=== PATIENT | female | born 1990 | race Caucasian/White ===

== ENCOUNTER 2020-08-03 22:46 | Emergency (ER) | payer MEDICAID, SELFPAY ==
--- NOTE | ~2020-08-03 | CT_ITS ---
EXAMINATION: CT ABDOMEN AND PELVIS WITH CONTRAST CLINICAL INFORMATION: Right flank/right lower quadrant pain COMPARISON: 10/31/2017 TECHNIQUE: Multidetector volumetric images were obtained from the superior aspect of the liver through the pubic symphysis following administration 85 mL of Omnipaque 350 intravenous contrast. Delayed acquisition performed. Sagittal and coronal reformatted images were obtained on the technologist's workstation. Oral contrast: No This CT examination was performed using dose optimization techniques as appropriate, variously including the following: *Automated exposure control *Adjustment of mA and/or kV according to patient size (this includes techniques or standardized protocols for targeted exams where dose is matched to indication/reason for exam; i.e. extremities or head) *Use of iterative reconstruction technique DLP: 728 mGy-cm FINDINGS: LUNG BASES: The visualized lung bases are unremarkable. LIVER, GALLBLADDER, AND BILIARY TREE: The liver is normal in size, shape, and attenuation. No focal hepatic lesion or biliary ductal dilatation is present. The gallbladder is unremarkable with no evidence of radiopaque gallstones, gallbladder wall thickening, or obvious pericholecystic inflammatory changes. PANCREAS: Unremarkable. SPLEEN: Unremarkable. ADRENAL GLANDS: Unremarkable. KIDNEYS AND URETERS: The kidneys are normal in size, shape, and attenuation. There is mild right hydroureteronephrosis. There is a 0.2 cm calculus in the distal right ureter approximately 1 cm proximal to the ureterovesicular junction. Normal left excretion. Delayed right excretion. Small cortical renal cysts. BLADDER: Unremarkable. GASTROINTESTINAL TRACT: The stomach is unremarkable. Normal caliber small bowel. There is no obstruction. No colonic wall thickening or acute inflammatory change. No free air. Small amount of pelvic free fluid. ABDOMINAL WALL: No significant hernia is appreciated. LYMPH NODES: Normal. VASCULAR: Unremarkable. PELVIC VISCERA: Anteverted uterus. Dominant left ovarian follicle noted which measures 2.2 x 1.3 cm. OSSEOUS STRUCTURES: No acute or suspicious osseous abnormality. CT/CT abdomen pelvis w con IMPRESSION: Mild right hydroureteronephrosis with a 0.2 cm distal right ureteral calculus.
[2020-08-03 22:48] VITALS: BP 126/75; PULSE 123; RESP 20; TEMP 36.7; O2SAT 99; BMI 20.9
--- NOTE | 2020-08-03 23:08 | ED_ITS ---
HPI - Abdominal Pain General Chief Complaint: Abdominal Pain Stated Complaint: Flank pain Time Seen by Provider: 08/03/20 23:07 Source: patient Mode of arrival: ambulatory History of Present Illness HPI narrative: This is a 29-year-old female with history of renal stones who presents with acute onset of right lower quadrant pain and involvement with the lower back but denies any urinary pain/burning/fevers/chills but has been nauseous. This all started at 8:00 p.m. and patient states has progressively worsened. She endorses that the pain worsens with laying down. Related Data Previous Rx's Medication Instructions Recorded ciprofloxacin HCl 500 mg PO Q12H 5 Days #10 tab 08/04/20 ketorolac 10 mg PO TID PRN 5 Days #15 tab 08/04/20 tamsulosin [Flomax] 0.4 mg PO BEDTIME 4 Days #4 cap 08/04/20 Allergies Allergy/AdvReac Type Severity Reaction Status Date / Time No Known Allergies Allergy Verified 08/03/20 22:48 Review of Systems Review of Systems Pertinent positives and negatives as stated in HPI 10 point review systems otherwise negative. Physical Exam Vital Signs: Vital Signs: Last Vital Signs Temp 98.0 F 08/03/20 22:48 Pulse 123 H 08/03/20 22:48 Resp 20 08/03/20 22:48 BP 126/75 08/03/20 22:48 Pulse Ox 99 08/03/20 22:48 Body Mass Index 20.9 VITAL SIGNS: Reviewed. GENERAL: Well developed, well nourished, in no acute distress. HEAD: Normocephalic/atraumatic NOSE: Nares patent bilateral OROPHARYNX: no oral lesions noted, posterior pharynx clear NECK: Supple, no adenopathy LUNGS: Normal breath sounds. No adventitious sounds or accessory muscle use. SpO2<99> CARDIOVASCULAR: Regular rate and rhythm without noted murmurs ABDOMEN: Soft, minimal tenderness in the right lower quadrant on palpation, no CVA tenderness, non-distended with bowel sounds. NEUROLOGIC: Alert and oriented x 4. Course Course Course Narrative: This is a 29-year-old female history and clinical presentation most consistent with renal colic, but will rule out UTI/ectopic . Review of all investigations is significant for renal colic. On re-evaluation patient has improved in likely passed her stone she is now tolerating oral intake and pain is well controlled. She will be discharged on Flomax was treated with initial dose of antibiotics and will be discharged with remaining c ourse as well as being instructed to follow-up with her primary care provider for possible referral to Urology. MDM - Abdominal Pain Lab Data Result diagrams: 08/03/20 23:38 08/03/20 23:38 Labs: Lab Results 08/03/20 08/03/20 08/03/20 Range/Units 22:58 22:58 23:38 WBC 8.0 (4.8-10.8) X10*3/uL RBC 4.85 (4.20-5.50) X10*6/uL Hgb 14.1 (12.0-16.0) g/dl Hct 42.4 (37-47) % MCV 87.4 (80-98) fL MCH 29.1 (27.0-33.0) pg MCHC 33.3 (31.0-35.0) g/dl RDW 12.6 (11.0-16.0) % Plt Count 223 (160-400) X10*3/uL MPV 11.1 (9.4-12.3) fL Immature Gran % (Auto) 0.5 H (0.0-0.4) % Neut % (Auto) 80.0 H (45-73) % Lymph % (Auto) 13.8 L (20-40) % [place] % (Auto) 4.9 (2-11) % Eos % (Auto) 0.4 (0-4) % Baso % (Auto) 0.4 (0-2) % Lymph # (Auto) 1.1 L (1.2-4.9) X10*3/uL [place] # (Auto) 0.4 (0.1-1.2) X10*3/uL Eos # (Auto) 0.0 (0.0-0.4) X10*3/uL Baso # (Auto) 0.0 (0.0-0.2) X10*3/uL Abs Immat Gran (auto) 0.04 H (0.00-0.03) X10*3/uL Absolute Neuts (auto) 6.4 (2.0-8.3) X10*3/uL Absolute Nucleated RBC 0.000 (0.0-0.012) X10*3/uL Nucleated RBC % (auto) 0.0 (0.0-0.2) /100WBC Sodium (135-145) mmol/L Potassium (3.3-5.1) mmol/L Chloride (96-108) mmol/L Carbon Dioxide (22-29) mmol/L Anion Gap (12-20) BUN (9-16) mg/dL Creatinine (0.5-1.4) mg/dL Estim Creat Clear Calc Estimated GFR Random Glucose (60-115) mg/dL Lactic Acid (0.5-2.0) mmol/L Lactic Acid Fup @ 2Hr (0.5-2.0) mmol/L Calcium (8.4-10.2) mg/dL Total Bilirubin (0.0-1.0) mg/dL AST (5-31) U/L ALT (0-31) U/L Alkaline Phosphatase (39-117) U/L Total Protein (6.5-8.0) g/dL Albumin (3.5-5.0) g/dL Urine Color BROWN Urine Appearance CLOUDY Urine pH 5.0 (5.0-8.0) Ur Specific [place] >= 1.030 H (1.005-1.025) Urine Protein 1+ H (NEG-TRACE) MG/DL Urine Glucose (UA) NEG (NEG) MG/DL Urine Ketones 5 (NEG) MG/DL Urine Blood 3+ H (NEG) Urine Nitrite POS H (NEG) Ur Leukocyte Esterase NEG (NEG) Urine RBC TNTC H (0) /HPF Urine WBC 0-2 (0-4) /HPF Ur Squamous Epith Cells TRACE /LPF Urine Bacteria TRACE /LPF Urine Mucus 1+ /LPF Urine Test NEGATIVE (NEGATIVE) 08/03/20 08/03/20 08/04/20 Range/Units 23:38 23:59 02:19 WBC (4.8-10.8) X10*3/uL RBC (4.20-5.50) X10*6/uL Hgb (12.0-16.0) g/dl Hct (37-47) % MCV (80-98) fL MCH (27.0-33.0) pg MCHC (31.0-35.0) g/dl RDW (11.0-16.0) % Plt Count (160-400) X10*3/uL MPV (9.4-12.3) fL Immature Gran % (Auto) (0.0-0.4) % Neut % (Auto) (45-73) % Lymph % (Auto) (20-40) % [place] % (Auto) (2-11) % Eos % (Auto) (0-4) % Baso % (Auto) (0-2) % Lymph # (Auto) (1.2-4.9) X10*3/uL [place] # (Auto) (0.1-1.2) X10*3/uL Eos # (Auto) (0.0-0.4) X10*3/uL Baso # (Auto) (0.0-0.2) X10*3/uL Abs Immat Gran (auto) (0.00-0.03) X10*3/uL Absolute Neuts (auto) (2.0-8.3) X10*3/uL Absolute Nucleated RBC (0.0-0.012) X10*3/uL Nucleated RBC % (auto) (0.0-0.2) /100WBC Sodium 139 (135-145) mmol/L Potassium 3.8 (3.3-5.1) mmol/L Chloride 105 (96-108) mmol/L Carbon Dioxide 21 L (22-29) mmol/L Anion Gap 17 (12-20) BUN 10 (9-16) mg/dL Creatinine 0.73 (0.5-1.4) mg/dL Estim Creat Clear Calc 80.9 Estimated GFR > 60 Random Glucose 125 H (60-115) mg/dL Lactic Acid 2.2 H* (0.5-2.0) mmol/L Lactic Acid Fup @ 2Hr 1.9 (0.5-2.0) mmol/L Calcium 9.1 (8.4-10.2) mg/dL Total Bilirubin 1.2 H (0.0-1.0) mg/dL AST 18 (5-31) U/L ALT 23 (0-31) U/L Alkaline Phosphatase 56 (39-117) U/L Total Protein 7.6 (6.5-8.0) g/dL Albumin 4.7 (3.5-5.0) g/dL Urine Color Urine Appearance Urine pH (5.0-8.0) Ur Specific [place] (1.005-1.025) Urine Protein (NEG-TRACE) MG/DL Urine Glucose (UA) (NEG) MG/DL Urine Ketones (NEG) MG/DL Urine Blood (NEG) Urine Nitrite (NEG) Ur Leukocyte Esterase (NEG) Urine RBC (0) /HPF Urine WBC (0-4) /HPF Ur Squamous Epith Cells /LPF Urine Bacteria /LPF Urine Mucus /LPF Urine Test (NEGATIVE) Discharge Plan Discharge Clinical Impression: Ureterolithiasis UTI (urinary tract infection) Qualifiers: Urinary tract infection type: site unspecified Hematuria presence: with hematuria Qualified Code(s): N39.0 - Urinary tract infection, site not specified Patient Disposition: Home, Self-Care Instructions: Urinary Tract Infection in Women (ED), Ureteral Stones (ED) Additional Instructions: 1. Increase fluid hydration especially with water. 2. Please avoid caffeinated/carbonated beverages as this increases likelihood of stone formation. 3. Please follow-up with your primary care provider in the next 1-2 days. 4. Tylenol 1000 mg, orally, every 6 hours as needed for pain control. Do not exceed 4000 mg within 24 hours. Do not hesitate to return to the emergency department if you have any acute worsening of her symptoms. Prescriptions: New ketorolac 10 mg tablet 10 mg PO TID PRN (Reason: pain) 5 Days Qty: 15 RF: 0 tamsulosin [Flomax] 0.4 mg capsule 0.4 mg PO BEDTIME 4 Days Qty: 4 RF: 0 ciprofloxacin HCl 500 mg tablet 500 mg PO Q12H 5 Days Qty: 10 RF: 0 Referrals: Pepper Song MD [Primary Care Provider] - 2 days (Re-evaluation and outpatient management after being diagnosed with renal colic. Patient also had UTI and was started on antibiotics.) [facility] Past Medical History Source: nursing notes reviewed Medical History Kidney stones Social History Social History Smoked in Last 30 Days: No Advance Directives: No Advance Directives Information Provided: No
[2020-08-03 23:16] LABS: Glucose Urine UA NEG (NEG); Leukocyte Esterase Urine NEG (NEG); Nitrite Urine POS (NEG); Specific Gravity - Urine >= 1.030 (1.005-1.025); UACC Culture Trigger YES; Urine Blood 3+ (NEG); Urine Ketones 5 MG/DL (NEG); Urine Protein 1+ MG/DL (NEG-TRACE)
[2020-08-03 23:19] LABS: Appearance Urine CLOUDY; Color Urine BROWN
[2020-08-03 23:33] LABS: UPreg QC Valid YES; Urine Pregnancy NEGATIVE (NEGATIVE)
[2020-08-03 23:42] LABS: MANUAL DIFF FLAG NO
[2020-08-03] MEDS: 0.9 % Sodium Chloride 1,000 ML 999 ML IV (23:44)
[2020-08-03] MEDS: Acetaminophen 325 MG TABLET 975 MG PO (23:44)
[2020-08-03] MEDS: ondansetron HCL 4 MG/2 ML VIAL IVPUSH (23:45)
[2020-08-03] MEDS: Ketorolac Tromethamine 15 MG/ML VIAL IVPUSH (23:45)
[2020-08-03 23:47] LABS: Basophils Percent Auto 0.4 % (0-2); Eosinophils Percent Auto 0.4 % (0-4); Hematocrit 42.4 % (37-47); Hemoglobin 14.1 g/dl (12.0-16.0); Imm Gran Abs Auto 0.04 X10*3/uL (0.00-0.03); Imm Gran Pct Auto 0.5 % (0.0-0.4); Lymphocytes Absolute Auto 1.1 X10*3/uL (1.2-4.9); Lymphocytes Percent Auto 13.8 % (20-40); Mean Corpuscular HGB Conc 33.3 g/dl (31.0-35.0); Mean Corpuscular Hemoglobin 29.1 pg (27.0-33.0); Mean Corpuscular Volume 87.4 fL (80-98); Mean Platelet Volume 11.1 fL (9.4-12.3); Monocytes Absolute Auto 0.4 X10*3/uL (0.1-1.2); Monocytes Percent Auto 4.9 % (2-11); Neutrophils Absolute Auto 6.4 X10*3/uL (2.0-8.3); Platelet Count 223 X10*3/uL (160-400); Red Blood Count 4.85 X10*6/uL (4.20-5.50); Red Cell Distribution Width 12.6 % (11.0-16.0)
[2020-08-03 23:49] LABS: Bacteria Urine TRACE /LPF; Mucus Urine 1+ /LPF; RBC Urine TNTC /HPF (0); Squamous Epithelial Cell Urine TRACE /LPF; UACC CULT YES; WBC Urine 0-2 /HPF (0-4)
[2020-08-04 00:18] LABS: Alanine Aminotransferase 23 U/L (0-31); Albumin Level 4.7 g/dL (3.5-5.0); Alkaline Phosphatase 56 U/L (39-117); Anion Gap 17 (12-20); Aspartate Amino Transferase 18 U/L (5-31); Bilirubin Total 1.2 mg/dL (0.0-1.0); Blood Urea Nitrogen 10 mg/dL (9-16); Calcium 9.1 mg/dL (8.4-10.2); Carbon Dioxide 21 mmol/L (22-29); Chloride 105 mmol/L (96-108); Creatinine Clr Calc Pharmacy 80.9; Estimated Glomerular Filt Rate > 60; Glucose Random 125 mg/dL (60-115); Potassium 3.8 mmol/L (3.3-5.1); Sodium 139 mmol/L (135-145); Total Protein 7.6 g/dL (6.5-8.0)
[2020-08-04 00:28] LABS: Lactic Acid 2.2 mmol/L (0.5-2.0)
[2020-08-04] MEDS: iohexoL 350 MG/ML 100 ML INFUS..BTL 85 ML IV (00:42)
[2020-08-04] MEDS: fentaNYL citrate/PF 100 MCG/2 ML VIAL 25 MCG IVPUSH (00:52)
[2020-08-04 02:03] LABS: Reflex Lactate? Lactic Acid Added
[2020-08-04 02:45] LABS: ~Lactic Acid-LAB USE ONLY 1.9 mmol/L (0.5-2.0)
[2020-08-04] MEDS: levoFLOXacin 500 MG TABLET PO (03:56)
== END 2020-08-04 04:34 | disposition home or self-care (01) ==
PROVIDERS: Emergency Provider Student in an Organized Health Care Education/Training Program; PCP Family Medicine
DX: N13.2 Hydronephrosis with renal and ureteral calculous obstruction (principal); N39.0 Urinary tract infection, site not specified; Z87.442 Personal history of urinary calculi
CPT/HCPCS: 36415; 74177; 80053; 81001; 81025; 83605; 85025; 87040; 87086; 96361; 96374; 96375; 99284; J1885; J2405; J3010; Q9967

== ENCOUNTER 2020-08-05 18:31 | Emergency (ER) | payer MEDICAID, SELFPAY | END 2020-08-05 19:22 | disposition left against medical advice (07) | PROVIDERS: Emergency Provider Emergency Medicine; PCP Family Medicine | DX: R10.9 Unspecified abdominal pain (principal) ==

== ENCOUNTER 2020-08-05 21:09 | Emergency (ER) | payer MEDICAID, SELFPAY ==
[2020-08-05 21:19] VITALS: BP 117/78; PULSE 104; RESP 18; TEMP 36.9; O2SAT 100; BMI 20.9
[2020-08-05 21:52] LABS: Hematocrit 36.8 % (37-47); Hemoglobin 12.3 g/dl (12.0-16.0); Imm Gran Abs Auto 0.03 X10*3/uL (0.00-0.03); Imm Gran Pct Auto 0.3 % (0.0-0.4); Lymphocytes Absolute Auto 0.5 X10*3/uL (1.2-4.9); Lymphocytes Percent Auto 4.8 % (20-40); MANUAL DIFF FLAG SCAN; Mean Corpuscular HGB Conc 33.4 g/dl (31.0-35.0); Mean Corpuscular Hemoglobin 29.4 pg (27.0-33.0); Mean Corpuscular Volume 87.8 fL (80-98); Mean Platelet Volume 10.8 fL (9.4-12.3); Monocytes Absolute Auto 0.9 X10*3/uL (0.1-1.2); Monocytes Percent Auto 8.7 % (2-11); Neutrophils Absolute Auto 8.4 X10*3/uL (2.0-8.3); Neutrophils Percent Auto 86.2 % (45-73); Platelet Count 174 X10*3/uL (160-400); Red Blood Count 4.19 X10*6/uL (4.20-5.50); Red Cell Distribution Width 12.6 % (11.0-16.0); SCAN SMEAR FLAG 1; White Blood Count 9.8 X10*3/uL (4.8-10.8)
[2020-08-05 21:53] LABS: Appearance Urine CLEAR; Color Urine YELLOW; Glucose Urine UA NEG (NEG); Leukocyte Esterase Urine NEG (NEG); Nitrite Urine NEG (NEG); PH 5.5 (5.0-8.0); Specific Gravity - Urine >= 1.030 (1.005-1.025); Urine Blood 1+ (NEG); Urine Ketones 40 MG/DL (NEG); Urine Protein NEG (NEG-TRACE)
[2020-08-05 21:59] LABS: UPreg QC Valid YES; Urine Pregnancy POSITIVE (NEGATIVE)
[2020-08-05 22:00] LABS: Squamous Epithelial Cell Urine 2+ /LPF; WBC Urine 0 /HPF (0-4)
[2020-08-05 22:09] LABS: Alanine Aminotransferase 15 U/L (0-31); Albumin Level 4.1 g/dL (3.5-5.0); Alkaline Phosphatase 51 U/L (39-117); Anion Gap 12 (12-20); Aspartate Amino Transferase 14 U/L (5-31); Blood Urea Nitrogen 10 mg/dL (9-16); Calcium 8.3 mg/dL (8.4-10.2); Carbon Dioxide 24 mmol/L (22-29); Chloride 105 mmol/L (96-108); Creatinine Clr Calc Pharmacy 55.2; Estimated Glomerular Filt Rate > 60; Glucose Random 144 mg/dL (60-115); Potassium 3.4 mmol/L (3.3-5.1); Sodium 138 mmol/L (135-145); Total Protein 6.6 g/dL (6.5-8.0)
[2020-08-05 22:19] LABS: SLIDE REVIEW VERIFIED
[2020-08-06 01:25] VITALS: BP 111/67; PULSE 94; RESP 18; TEMP 37.1; O2SAT 100
--- NOTE | 2020-08-06 01:51 | ED_ITS ---
HPI - Abdominal Pain General Chief Complaint: Abdominal Pain Stated Complaint: Flank pain Time Seen by Provider: 08/06/20 01:51 Source: patient Mode of arrival: ambulatory History of Present Illness HPI narrative: This is a 29-year-old female who presents with persistent nausea and vomiting and right-sided abdominal discomfort after being seen and treated on 08/03 for ureterolithiasis. She denies any fevers, chills, diarrhea and states that although the pain is less than what it was on initial presentation she still feels like the medications are not effective. Related Data Previous Rx's Medication Instructions Recorded ciprofloxacin HCl 500 mg PO Q12H 5 Days #10 tab 08/04/20 ketorolac 10 mg PO TID PRN 5 Days #15 tab 08/04/20 tamsulosin [Flomax] 0.4 mg PO BEDTIME 4 Days #4 cap 08/04/20 amoxicillin-pot clavulanate 1 tab PO Q12H 5 Days #10 tab 08/06/20 [Augmentin] pyridoxine (vitamin B6) 25 mg PO TID #30 tab 08/06/20 Allergies Allergy/AdvReac Type Severity Reaction Status Date / Time No Known Allergies Allergy Verified 08/05/20 21:19 Review of Systems Review of Systems Pertinent positives and negatives as stated in HPI and 10 point review systems is otherwise negative. Physical Exam Vital Signs: Vital Signs: Last Vital Signs Temp 98.7 F 08/06/20 02:00 Pulse 94 08/06/20 02:00 Resp 18 08/06/20 02:00 BP 111/67 08/06/20 02:00 Pulse Ox 100 08/06/20 02:00 Body Mass Index 20.9 VITAL SIGNS: Reviewed. GENERAL: Well developed, well nourished, in no acute distress. NOSE: Nares patent bilateral OROPHARYNX: no oral lesions noted, posterior pharynx clear NECK: Supple, no adenopathy LUNGS: Normal breath sounds. No adventitious sounds or accessory muscle use. SpO2<100> CARDIOVASCULAR: Regular rate and rhythm without noted murmurs ABDOMEN: Soft, non-tender, non-distended with bowel sounds. SKIN: Inspection of the skin reveals no rashes NEUROLOGIC: Alert and oriented x 4. Course Course Course Narrative: This is a 29-year-old female with history and clinical presentation consistent with possible recurrent renal colic or obstruction, but less likely appendicitis or diverticulitis. On review of all investigations there are no acute findings other than urine now being positive. Beta hCG was less than 1000 and therefore further investigation with ultrasound for evidence of ectopic was deferred. It is suspected the patient's persistent nausea and vomiting may be secondary to new diagnosis of . Patient was treated with IV fluids and Zofran with good resolution nausea and vomiting and able to tolerate oral intake. She was informed of all results and explanation for why we were not pursuing an ultrasound. However, she was instructed to start vitamins and follow up with her primary care provider today for re-evaluation. MDM - Abdominal Pain Lab Data Result diagrams: 08/05/20 21:43 08/05/20 21:43 Labs: Lab Results 08/05/20 08/05/20 08/05/20 Range/Units 21:43 21:43 21:43 WBC 9.8 (4.8-10.8) X10*3/uL RBC 4.19 L (4.20-5.50) X10*6/uL Hgb 12.3 (12.0-16.0) g/dl Hct 36.8 L (37-47) % MCV 87.8 (80-98) fL MCH 29.4 (27.0-33.0) pg MCHC 33.4 (31.0-35.0) g/dl RDW 12.6 (11.0-16.0) % Plt Count 174 (160-400) X10*3/uL MPV 10.8 (9.4-12.3) fL Immature Gran % (Auto) 0.3 (0.0-0.4) % Neut % (Auto) 86.2 H (45-73) % Lymph % (Auto) 4.8 L (20-40) % [place] % (Auto) 8.7 (2-11) % Eos % (Auto) 0.0 (0-4) % Baso % (Auto) 0.0 (0-2) % Lymph # (Auto) 0.5 L (1.2-4.9) X10*3/uL [place] # (Auto) 0.9 (0.1-1.2) X10*3/uL Eos # (Auto) 0.0 (0.0-0.4) X10*3/uL Baso # (Auto) 0.0 (0.0-0.2) X10*3/uL Abs Immat Gran (auto) 0.03 (0.00-0.03) X10*3/uL Absolute Neuts (auto) 8.4 H (2.0-8.3) X10*3/uL Absolute Nucleated RBC 0.000 (0.0-0.012) X10*3/uL Nucleated RBC % (auto) 0.0 (0.0-0.2) /100WBC Smear Tech's Comments VERIFIED Hold Blue Top SEE NOTE Sodium (135-145) mmol/L Potassium (3.3-5.1) mmol/L Chloride (96-108) mmol/L Carbon Dioxide (22-29) mmol/L Anion Gap (12-20) BUN (9-16) mg/dL Creatinine (0.5-1.4) mg/dL Estim Creat Clear Calc Estimated GFR Random Glucose (60-115) mg/dL Calcium (8.4-10.2) mg/dL Total Bilirubin (0.0-1.0) mg/dL AST (5-31) U/L ALT (0-31) U/L Alkaline Phosphatase (39-117) U/L Total Protein (6.5-8.0) g/dL Albumin (3.5-5.0) g/dL Beta HCG, Quant mIU/mL Urine Color YELLOW Urine Appearance CLEAR Urine pH 5.5 (5.0-8.0) Ur Specific [place] >= 1.030 H (1.005-1.025) Urine Protein NEG (NEG-TRACE) MG/DL Urine Glucose (UA) NEG (NEG) MG/DL Urine Ketones 40 (NEG) MG/DL Urine Blood 1+ H (NEG) Urine Nitrite NEG (NEG) Ur Leukocyte Esterase NEG (NEG) Urine RBC 5-9 H (0) /HPF Urine WBC 0 (0-4) /HPF Ur Squamous Epith Cells 2+ /LPF Urine Bacteria NONE /LPF Urine Test (NEGATIVE) 08/05/20 08/05/20 Range/Units 21:43 21:43 WBC (4.8-10.8) X10*3/uL RBC (4.20-5.50) X10*6/uL Hgb (12.0-16.0) g/dl Hct (37-47) % MCV (80-98) fL MCH (27.0-33.0) pg MCHC (31.0-35.0) g/dl RDW (11.0-16.0) % Plt Count (160-400) X10*3/uL MPV (9.4-12.3) fL Immature Gran % (Auto) (0.0-0.4) % Neut % (Auto) (45-73) % Lymph % (Auto) (20-40) % [place] % (Auto) (2-11) % Eos % (Auto) (0-4) % Baso % (Auto) (0-2) % Lymph # (Auto) (1.2-4.9) X10*3/uL [place] # (Auto) (0.1-1.2) X10*3/uL Eos # (Auto) (0.0-0.4) X10*3/uL Baso # (Auto) (0.0-0.2) X10*3/uL Abs Immat Gran (auto) (0.00-0.03) X10*3/uL Absolute Neuts (auto) (2.0-8.3) X10*3/uL Absolute Nucleated RBC (0.0-0.012) X10*3/uL Nucleated RBC % (auto) (0.0-0.2) /100WBC Smear Tech's Comments Hold Blue Top Sodium 138 (135-145) mmol/L Potassium 3.4 (3.3-5.1) mmol/L Chloride 105 (96-108) mmol/L Carbon Dioxide 24 (22-29) mmol/L Anion Gap 12 (12-20) BUN 10 (9-16) mg/dL Creatinine 1.07 (0.5-1.4) mg/dL Estim Creat Clear Calc 55.2 Estimated GFR > 60 Random Glucose 144 H (60-115) mg/dL Calcium 8.3 L D (8.4-10.2) mg/dL Total Bilirubin 1.0 (0.0-1.0) mg/dL AST 14 (5-31) U/L ALT 15 (0-31) U/L Alkaline Phosphatase 51 (39-117) U/L Total Protein 6.6 (6.5-8.0) g/dL Albumin 4.1 (3.5-5.0) g/dL Beta HCG, Quant 35 mIU/mL Urine Color Urine Appearance Urine pH (5.0-8.0) Ur Specific [place] (1.005-1.025) Urine Protein (NEG-TRACE) MG/DL Urine Glucose (UA) (NEG) MG/DL Urine Ketones (NEG) MG/DL Urine Blood (NEG) Urine Nitrite (NEG) Ur Leukocyte Esterase (NEG) Urine RBC (0) /HPF Urine WBC (0-4) /HPF Ur Squamous Epith Cells /LPF Urine Bacteria /LPF Urine Test POSITIVE H (NEGATIVE) Discharge Plan Discharge Clinical Impression: Qualifiers: Weeks of gestation: less than 8 weeks Qualified Code(s): Z3A.01 - Less than 8 weeks gestation of Patient Disposition: Home, Self-Care Instructions: Vitamins (By mouth), (ED) Additional Instructions: 1. STOP Ketorolac (Toradol) and any other ibuprofen/Motrin/Aleve/Naprosyn during your , ciprofloxacin. 2. Continue tamsulosin. 3. Prescription for different antibiotic has been sent to your pharmacy and should be completed. 4. Please call the office of your primary care provider 1st thing in the morning to expedite re-evaluation and you should start taking vitamins. Do not hesitate to return to the emergency department for any acute worsening of your symptoms. Prescriptions: New amoxicillin-pot clavulanate [Augmentin] 875-125 mg tablet 1 tab PO Q12H 5 Days Qty: 10 RF: 0 pyridoxine (vitamin B6) 25 mg tablet 25 mg PO TID Qty: 30 RF: 0 No Action ketorolac 10 mg tablet 10 mg PO TID PRN (Reason: pain) 5 Days Qty: 15 RF: 0 tamsulosin [Flomax] 0.4 mg capsule 0.4 mg PO BEDTIME 4 Days Qty: 4 RF: 0 ciprofloxacin HCl 500 mg tablet 500 mg PO Q12H 5 Days Qty: 10 RF: 0 Referrals: Pepper Song MD [Primary Care Provider] - 2 days (Re-evaluation after being diagnosed with .) Interventions: ED Discharge Assessment Last Done: 08/06/20 03:31 Discharge Date/Time: 08/06/20 03:32 [facility] Past Medical History Source: nursing notes reviewed Medical History Kidney stones Social History Social History Smoking Status: Never smoker Use of substances other than those prescribed or required for medical reasons: No Advance Directives: No
[2020-08-06 02:00] VITALS: BP 111/67; PULSE 94; RESP 18; TEMP 37.1; O2SAT 100
[2020-08-06 02:29] LABS: HCG Quantitative 35 mIU/mL
== END 2020-08-06 03:32 | disposition home or self-care (01) ==
PROVIDERS: Emergency Provider Student in an Organized Health Care Education/Training Program; PCP Family Medicine
DX: R11.2 Nausea with vomiting, unspecified (principal); Z32.01 Encounter for pregnancy test, result positive
CPT/HCPCS: 36415; 80053; 81001; 81025; 84702; 85025; 99283; 99284

== ENCOUNTER 2020-08-06 11:07 | Emergency (ER) | payer MEDICAID, SELFPAY ==
--- NOTE | ~2020-08-06 | US_ITS ---
EXAMINATION: US RETROPERITONEAL LIMITED (RENAL ONLY) CLINICAL INFORMATION: Right flank pain. Distal right ureteral stone.. COMPARISON: CT abdomen and pelvis 08/04/2020 TECHNIQUE: Routine imaging of kidneys was performed. FINDINGS: RIGHT KIDNEY: 11.1 x 5.9 x 5.3 cm (SAG x AP x TRV). The kidney is normal in size, contour, and echogenicity. Renal cortical thickness is normal. No calculi or focal parenchymal lesions. There is mild hydronephrosis. LEFT KIDNEY: 11.2 x 5.6 x 4.2 cm (SAG x AP x TRV). The kidney is normal in size, contour, and echogenicity. Renal cortical thickness is normal. There are no echogenic calculi. There is an anechoic cyst in the midpole. No hydronephrosis. Empty bladder No ureteral jets seen. US/US renal BI IMPRESSION: 1. Mild right hydronephrosis with no obstructive renal calculi seen. 2. Anechoic cyst midpole left kidney.
[2020-08-06 11:14] VITALS: BP 137/31; PULSE 112; RESP 16; TEMP 36.5; O2SAT 99; BMI 20.9
--- NOTE | 2020-08-06 11:23 | ED.GENADULT ---
HPI - General Adult General Chief complaint: General Medical Stated complaint: flank pain, Time Seen by Provider: 08/06/20 11:19 Source: patient and old records reviewed Mode of arrival: ambulatory Limitations: no limitations History of Present Illness HPI narrative: 29 yo female with R flank pain since 08/03 dx with 2mm distal R uterer stone on 08/[address] scan sent home on flomax, toradol, cipro for UT, came back found to have mildly elevated hcg felt better and went home - did not fill her antibiotics (switched to amoxicillin) states again the pain is severe c/o n/v and states she didn't take any antibiotics complaint: Flank pain Onset (ago): day(s) (5) Location: abdomen (R flank) Severity: moderate Quality: stabbing Pain Consistency: constant Relieving factors: none Exacerbating factors: none Associated symptoms: loss of appetite and nausea/vomiting Treatments prior to arrival: none Related Data Previous Rx's Medication Instructions Recorded ciprofloxacin HCl 500 mg PO Q12H 5 Days #10 tab 08/04/20 ketorolac 10 mg PO TID PRN 5 Days #15 tab 08/04/20 tamsulosin [Flomax] 0.4 mg PO BEDTIME 4 Days #4 cap 08/04/20 amoxicillin-pot clavulanate 1 tab PO Q12H 5 Days #10 tab 08/06/20 [Augmentin] cephalexin 500 mg PO BID 7 Days #14 cap 08/06/20 hydrocodone-acetaminophen 1 tab PO Q6H PRN #12 tab 08/06/20 ondansetron 4 mg PO Q8H PRN #20 tab 08/06/20 prednisone 40 mg PO DAILY 4 Days #8 tab 08/06/20 pyridoxine (vitamin B6) 25 mg PO TID #30 tab 08/06/20 Allergies Allergy/AdvReac Type Severity Reaction Status Date / Time No Known Allergies Allergy Verified 08/05/20 21:19 Review of Systems Review of Systems: Constitutional : No Fever, pos Chills ENT/Mouth : No sore throat Eyes: No Eye Pain, No Swelling, No Redness Cardiovascular : No Chest Pain, No SOB Respiratory : No Cough, No Sputum, No Wheezing Gastrointestinal : positive Nausea, positive Vomiting, No Diarrhea, positive abdominal pain Genitourinary : positive Dysuria, positive urinary frequency, no Hematuria, positive Flank Pain, no hesitancy Musculoskeletal : No joint pain, No Myalgias Skin : No Skin Lesions, No rash Neuro : No Weakness, No Numbness, No Headache Psych : No Anxiety/Panic, No Depression Heme/Lymph: No Bruising, No Lymphadenopathy Endocrine : No Polyuria, No Polydipsia All other systems reviewed and are negative [facility] Past Medical History Attestation statement: The following information was validated with the patient. Medical History Kidney stones Social History Social History Alcohol intake: never Smoking Status: Never smoker Use of substances other than those prescribed or required for medical reasons: No Advance Directives: Yes Advance Directives Information Provided: Yes Advance Directives on File: No Physical Exam Vital Signs: Vital Signs: Last Vital Signs Temp 98.2 F 08/06/20 14:27 Pulse 99 08/06/20 14:27 Resp 16 08/06/20 14:27 BP 117/71 08/06/20 14:27 Pulse Ox 99 08/06/20 14:27 Body Mass Index 20.9 Appearance: Alert. Oriented X3. No acute distress. Eyes: Pupils equal, round and reactive to light. ENT: Pharynx normal. Neck: Normal inspection. Neck supple. CVS: tachycardic heart rate and rhythm. Pulses normal. Respiratory: No respiratory distress. Breath sounds normal. Abdomen: Soft and nontender. Back: moderate R CVA ttp Skin: Skin warm and dry. Normal skin color. Normal skin turgor. Extremities: No lower extremity edema. No calf ttp Neuro: Oriented X 3. No motor deficit. No sensory deficit. Course Course Course Narrative: no vomiting, no UTI, afebrile, can tolerate PO, will discuss with Urology but given may want to wait 2 more days, start on cephalexin, pain medications, low dose steroids - follow up outpatient Urology okay to use flomax per Dr. Matos Medical Decision Making [facility] Narrative Medical decision making narrative: 29 yo female with hx of stones, just recently had pos test known 2mm distal R ureter stone c/o pain still - was supposed to take antibiotics never filled it could be stone vs pyelo, doubt ectopici she has soft nontender abdomen - IVF, IV rocephin, US for stone, PO pain medications Lab Data Result diagrams: 08/06/20 11:34 08/06/20 11:34 Labs: Lab Results 08/06/20 08/06/20 08/06/20 Range/Units 11:34 11:34 11:34 WBC 8.1 (4.8-10.8) X10*3/uL RBC 4.41 (4.20-5.50) X10*6/uL Hgb 13.0 (12.0-16.0) g/dl Hct 38.6 (37-47) % MCV 87.5 (80-98) fL MCH 29.5 (27.0-33.0) pg MCHC 33.7 (31.0-35.0) g/dl RDW 12.8 (11.0-16.0) % Plt Count 194 (160-400) X10*3/uL MPV 11.2 (9.4-12.3) fL Immature Gran % (Auto) 0.4 (0.0-0.4) % Neut % (Auto) 77.3 H (45-73) % Lymph % (Auto) 12.9 L (20-40) % [place] % (Auto) 8.7 (2-11) % Eos % (Auto) 0.5 (0-4) % Baso % (Auto) 0.2 (0-2) % Lymph # (Auto) 1.0 L (1.2-4.9) X10*3/uL [place] # (Auto) 0.7 (0.1-1.2) X10*3/uL Eos # (Auto) 0.0 (0.0-0.4) X10*3/uL Baso # (Auto) 0.0 (0.0-0.2) X10*3/uL Abs Immat Gran (auto) 0.03 (0.00-0.03) X10*3/uL Absolute Neuts (auto) 6.2 (2.0-8.3) X10*3/uL Absolute Nucleated RBC 0.000 (0.0-0.012) X10*3/uL Nucleated RBC % (auto) 0.0 (0.0-0.2) /100WBC Hold Blue Top SEE NOTE Sodium 140 (135-145) mmol/L Potassium 3.4 (3.3-5.1) mmol/L Chloride 105 (96-108) mmol/L Carbon Dioxide 26 (22-29) mmol/L Anion Gap 12 (12-20) BUN 11 (9-16) mg/dL Creatinine 0.79 (0.5-1.4) mg/dL Estim Creat Clear Calc 74.7 Estimated GFR > 60 Random Glucose 99 (60-115) mg/dL Lactic Acid (0.5-2.0) mmol/L Calcium 9.0 D (8.4-10.2) mg/dL Magnesium 2.3 (1.6-2.6) mg/dL Total Bilirubin 1.1 H (0.0-1.0) mg/dL Direct Bilirubin 0.3 (0.0-0.5) mg/dL AST 15 (5-31) U/L ALT 18 (0-31) U/L Alkaline Phosphatase 53 (39-117) U/L Total Protein 7.2 (6.5-8.0) g/dL Albumin 4.5 (3.5-5.0) g/dL Beta HCG, Quant 49 mIU/mL Urine Color Urine Appearance Urine pH (5.0-8.0) Ur Specific [place] (1.005-1.025) Urine Protein (NEG-TRACE) MG/DL Urine Glucose (UA) (NEG) MG/DL Urine Ketones (NEG) MG/DL Urine Blood (NEG) Urine Nitrite (NEG) Ur Leukocyte Esterase (NEG) Urine RBC (0) /HPF Urine WBC (0-4) /HPF Ur Squamous Epith Cells /LPF Urine Bacteria /LPF Urine Mucus /LPF Urine Opiates Screen (Not Detect) Ur Barbiturates Screen (Not Detect) Ur Phencyclidine Scrn (Not Detect) Ur Amphetamines Screen (Not Detect) U Benzodiazepines Scrn (Not Detect) Urine Cocaine Screen (Not Detect) U Marijuana (THC) Screen (Not Detect) 08/06/20 08/06/20 08/06/20 Range/Units 11:34 12:53 12:53 WBC (4.8-10.8) X10*3/uL RBC (4.20-5.50) X10*6/uL Hgb (12.0-16.0) g/dl Hct (37-47) % MCV (80-98) fL MCH (27.0-33.0) pg MCHC (31.0-35.0) g/dl RDW (11.0-16.0) % Plt Count (160-400) X10*3/uL MPV (9.4-12.3) fL Immature Gran % (Auto) (0.0-0.4) % Neut % (Auto) (45-73) % Lymph % (Auto) (20-40) % [place] % (Auto) (2-11) % Eos % (Auto) (0-4) % Baso % (Auto) (0-2) % Lymph # (Auto) (1.2-4.9) X10*3/uL [place] # (Auto) (0.1-1.2) X10*3/uL Eos # (Auto) (0.0-0.4) X10*3/uL Baso # (Auto) (0.0-0.2) X10*3/uL Abs Immat Gran (auto) (0.00-0.03) X10*3/uL Absolute Neuts (auto) (2.0-8.3) X10*3/uL Absolute Nucleated RBC (0.0-0.012) X10*3/uL Nucleated RBC % (auto) (0.0-0.2) /100WBC Hold Blue Top Sodium (135-145) mmol/L Potassium (3.3-5.1) mmol/L Chloride (96-108) mmol/L Carbon Dioxide (22-29) mmol/L Anion Gap (12-20) BUN (9-16) mg/dL Creatinine (0.5-1.4) mg/dL Estim Creat Clear Calc Estimated GFR Random Glucose (60-115) mg/dL Lactic Acid 0.9 (0.5-2.0) mmol/L Calcium (8.4-10.2) mg/dL Magnesium (1.6-2.6) mg/dL Total Bilirubin (0.0-1.0) mg/dL Direct Bilirubin (0.0-0.5) mg/dL AST (5-31) U/L ALT (0-31) U/L Alkaline Phosphatase (39-117) U/L Total Protein (6.5-8.0) g/dL Albumin (3.5-5.0) g/dL Beta HCG, Quant mIU/mL Urine Color YELLOW Urine Appearance HAZY Urine pH 6.0 (5.0-8.0) Ur Specific [place] >= 1.030 H (1.005-1.025) Urine Protein NEG (NEG-TRACE) MG/DL Urine Glucose (UA) NEG (NEG) MG/DL Urine Ketones >=80 (NEG) MG/DL Urine Blood 2+ H (NEG) Urine Nitrite NEG (NEG) Ur Leukocyte Esterase NEG (NEG) Urine RBC 5-9 H (0) /HPF Urine WBC 1-4 (0-4) /HPF Ur Squamous Epith Cells 2+ /LPF Urine Bacteria TRACE /LPF Urine Mucus 2+ /LPF Urine Opiates Screen Not Detected (Not Detect) Ur Barbiturates Screen Not Detected (Not Detect) Ur Phencyclidine Scrn Not Detected (Not Detect) Ur Amphetamines Screen Not Detected (Not Detect) U Benzodiazepines Scrn Not Detected (Not Detect) Urine Cocaine Screen Not Detected (Not Detect) U Marijuana (THC) Screen Not Detected (Not Detect) Discharge Plan Discharge Clinical Impression: Ureterolithiasis Patient Disposition: Home, Self-Care Instructions: Ureteral Stones (ED) Additional Instructions: return to ED for any worsening symptoms or concerns if not better in two days call Dr. Matos's office ONLY TAKE THE MEDICATIONS PRESCRIBED TODAY EXCEPT THE TAMSULOSIN/FLOMAX IT IS SAFE TO USE YOU SHOULD BE ON THE CEPHALEXIN, HYDROCODONE, ONDANSETRON, PREDNISONE, TAMSULOSIN ONLY FOR YOUR KIDNEY STONE Prescriptions: New prednisone 20 mg tablet 40 mg PO DAILY 4 Days Qty: 8 RF: 0 cephalexin 500 mg capsule 500 mg PO BID 7 Days Qty: 14 RF: 0 ondansetron 4 mg tablet,disintegrating 4 mg PO Q8H PRN (Reason: nausea and vomiting) Qty: 20 RF: 0 hydrocodone-acetaminophen 5-325 mg tablet 1 tab PO Q6H PRN (Reason: pain) Qty: 12 RF: 0 No Action ketorolac 10 mg tablet 10 mg PO TID PRN (Reason: pain) 5 Days Qty: 15 RF: 0 tamsulosin [Flomax] 0.4 mg capsule 0.4 mg PO BEDTIME 4 Days Qty: 4 RF: 0 ciprofloxacin HCl 500 mg tablet 500 mg PO Q12H 5 Days Qty: 10 RF: 0 amoxicillin-pot clavulanate [Augmentin] 875-125 mg tablet 1 tab PO Q12H 5 Days Qty: 10 RF: 0 pyridoxine (vitamin B6) 25 mg tablet 25 mg PO TID Qty: 30 RF: 0 Referrals: Robbie Matos MD [Physician] - 2 days (if not better) Stand Alone Forms: Work/School Release
[2020-08-06 11:43] LABS: MANUAL DIFF FLAG NO
[2020-08-06] MEDS: 0.9 % Sodium Chloride 1,000 ML 999 ML IVCONT (11:52)
[2020-08-06] MEDS: oxyCODONE HCl Immed Release 5 MG TABLET 10 MG PO (11:52)
[2020-08-06 11:53] LABS: Basophils Percent Auto 0.2 % (0-2); Eosinophils Percent Auto 0.5 % (0-4); Hematocrit 38.6 % (37-47); Imm Gran Abs Auto 0.03 X10*3/uL (0.00-0.03); Imm Gran Pct Auto 0.4 % (0.0-0.4); Lymphocytes Percent Auto 12.9 % (20-40); Mean Corpuscular HGB Conc 33.7 g/dl (31.0-35.0); Mean Corpuscular Hemoglobin 29.5 pg (27.0-33.0); Mean Corpuscular Volume 87.5 fL (80-98); Mean Platelet Volume 11.2 fL (9.4-12.3); Monocytes Absolute Auto 0.7 X10*3/uL (0.1-1.2); Monocytes Percent Auto 8.7 % (2-11); Neutrophils Absolute Auto 6.2 X10*3/uL (2.0-8.3); Neutrophils Percent Auto 77.3 % (45-73); Platelet Count 194 X10*3/uL (160-400); Red Blood Count 4.41 X10*6/uL (4.20-5.50); Red Cell Distribution Width 12.8 % (11.0-16.0); White Blood Count 8.1 X10*3/uL (4.8-10.8)
[2020-08-06] MEDS: ondansetron HCL 4 MG/2 ML VIAL IVPUSH (11:53)
[2020-08-06] MEDS: cefTRIAXone sodium 1 GM in 0.9 % Sodium Chloride 50 ML IV (11:54)
--- NOTE | 2020-08-06 11:54 | PC.NURSE ---
both blood cultures drawn and sent to lab
[2020-08-06 12:10] LABS: Lactic Acid 0.9 mmol/L (0.5-2.0)
[2020-08-06 12:16] LABS: Alanine Aminotransferase 18 U/L (0-31); Albumin Level 4.5 g/dL (3.5-5.0); Alkaline Phosphatase 53 U/L (39-117); Anion Gap 12 (12-20); Aspartate Amino Transferase 15 U/L (5-31); Bilirubin Direct 0.3 mg/dL (0.0-0.5); Bilirubin Total 1.1 mg/dL (0.0-1.0); Blood Urea Nitrogen 11 mg/dL (9-16); Carbon Dioxide 26 mmol/L (22-29); Chloride 105 mmol/L (96-108); Creatinine Clr Calc Pharmacy 74.7; Estimated Glomerular Filt Rate > 60; Glucose Random 99 mg/dL (60-115); Magnesium 2.3 mg/dL (1.6-2.6); Potassium 3.4 mmol/L (3.3-5.1); Sodium 140 mmol/L (135-145); Total Protein 7.2 g/dL (6.5-8.0)
[2020-08-06 12:23] LABS: HCG Quantitative 49 mIU/mL
[2020-08-06 12:27] VITALS: BP 107/79; PULSE 101; RESP 20; O2SAT 99
[2020-08-06] MEDS: Acetaminophen 325 MG TABLET 650 MG PO (12:48)
[2020-08-06 12:49] VITALS: RESP 16
[2020-08-06] MEDS: Morphine Sulfate 2 MG/ML CARTRIDGE IVPUSH (12:49)
--- NOTE | 2020-08-06 12:59 | PC.NURSE ---
ultra sound at bedside.
[2020-08-06 13:07] LABS: Glucose Urine UA NEG (NEG); Leukocyte Esterase Urine NEG (NEG); Nitrite Urine NEG (NEG); Specific Gravity - Urine >= 1.030 (1.005-1.025); Urine Blood 2+ (NEG); Urine Ketones >=80 MG/DL (NEG); Urine Protein NEG (NEG-TRACE)
[2020-08-06 13:08] LABS: Appearance Urine HAZY; Color Urine YELLOW
[2020-08-06 13:14] LABS: Bacteria Urine TRACE /LPF; Mucus Urine 2+ /LPF; Squamous Epithelial Cell Urine 2+ /LPF
[2020-08-06 13:39] LABS: Amphetamine Screen Urine Not Detected (Not Detect); Barbiturates, Urine Not Detected (Not Detect); Benzodiazepines Screen Urine Not Detected (Not Detect); Cannabinoid Screen Urine Not Detected (Not Detect); Cocaine Screen Urine Not Detected (Not Detect); Opiate Screen Urine Not Detected (Not Detect); Phencyclidine Screen Urine Not Detected (Not Detect)
[2020-08-06 14:25] VITALS: BP 117/71; PULSE 99; RESP 16
[2020-08-06 14:27] VITALS: BP 117/71; PULSE 99; RESP 16; TEMP 36.8; O2SAT 99
[2020-08-06] MEDS: predniSONE 20 MG TABLET 40 MG PO (16:24)
[2020-08-06] MEDS: Tamsulosin HCL 0.4 MG CAPSULE PO (16:24)
[2020-08-06] MEDS: oxyCODONE HCl Immed Release 5 MG TABLET PO (16:25)
--- NOTE | 2020-08-06 16:25 | PC.NURSE ---
MEDICATED PER ORDERS
[2020-08-06 16:35] VITALS: BP 116/56; PULSE 89
--- NOTE | 2020-08-06 16:38 | PC.NURSE ---
CLEARED FOR DC AFTER MEDS.
== END 2020-08-06 16:39 | disposition home or self-care (01) ==
PROVIDERS: Emergency Provider Emergency Medicine; PCP Family Medicine
DX: O21.8 Other vomiting complicating pregnancy (principal); O26.891 Other specified pregnancy related conditions, first trimester; N13.2 Hydronephrosis with renal and ureteral calculous obstruction
CPT/HCPCS: 36415; 76775; 80048; 80076; 80307; 81001; 83605; 83735; 84702; 85025; 87040; 96361; 96374; 96375; 99284; J0696; J2270; J2405

== ENCOUNTER 2020-08-07 14:32 | Emergency (ER) | payer MEDICAID, SELFPAY ==
--- NOTE | ~2020-08-07 | US_ITS ---
EXAMINATION: US RETROPERITONEAL LIMITED (RENAL ONLY) CLINICAL INFORMATION: Right flank pain.. COMPARISON: 08/06/[address] dated 08/04/2020 TECHNIQUE: Real-time imaging of the kidneys. FINDINGS: RIGHT KIDNEY: 11.4 x 5 x 5.2 cm (SAG x AP x TRV). The kidney is normal in size, contour, and echogenicity. Renal cortical thickness is normal. A 3 mm echogenic calculus is present within a calyx in the right lower renal pole. Right-sided hydronephrosis is again noted, unchanged from prior. No focal parenchymal lesions. LEFT KIDNEY: 11.1 x 5.5 x 5.6 cm (SAG x AP x TRV). The kidney is normal in size, contour, and echogenicity. Renal cortical thickness is normal. A 7 mm simple cyst is again seen in the interpolar region. No calculi or suspicious focal parenchymal lesions. No hydronephrosis. US/US renal BI IMPRESSION: 1. Unchanged right sided hydronephrosis. 2. A single 3 mm nonobstructing calculus in the right kidney. 3. A simple 7 mm cyst in the left kidney. No follow-up is necessary.
--- NOTE | ~2020-08-07 | US_ITS ---
EXAMINATION: US OBSTETRICAL ULTRASOUND CLINICAL INFORMATION: Right flank pain. COMPARISON: None. LMP: 07/10/2020. Gestational age by maternal dates is 4 weeks 0 days. Estimated date of delivery by maternal dates is 04/16/2021. TECHNIQUE: Ultrasound of the maternal pelvis is performed using transabdominal and transvaginal transducers. Transvaginal imaging is performed due to inadequate visualization transabdominally. M-mode Doppler is also performed. FINDINGS: No gestational sac identified. Uterus measures 10 x 4.9 x 5.4 cm (longitudinal by AP by transverse) with a borderline thickened, homogeneous endometrium (1.6 centimeters). Trace fluid is present in the endometrial canal. No focal decidual reaction is identified. No cystic foci identified within the endometrium. ADNEXA: The right maternal ovary measures 3.6 x 1.2 x 1.2 cm. No right renal cysts or focal abnormalities. The left maternal ovary measures 4.8 x 2.4 x 4.0 cm. A 1.7 cm corpus luteum cyst is present at the left ovary. No suspicious adnexal lesions are identified. A small volume of free fluid is present in the pelvic cul-de-sac. US/US OB <= 14 weeks fetus IMPRESSION: No intrauterine gestational sac identified. There is trace fluid in the endometrial canal with a borderline thickened endometrium. In the setting of a positive test, these findings may correspond to a which is too early to detect sonographically or a missed spontaneous . Ectopic cannot be excluded on these images, though no ectopic is identified. Small volume of intraperitoneal free fluid. A 1.7 cm left corpus luteum cyst.
--- NOTE | ~2020-08-07 | US_ITS ---
EXAMINATION: US OBSTETRICAL ULTRASOUND CLINICAL INFORMATION: Right flank pain. COMPARISON: None. LMP: 07/10/2020. Gestational age by maternal dates is 4 weeks 0 days. Estimated date of delivery by maternal dates is 04/16/2021. TECHNIQUE: Ultrasound of the maternal pelvis is performed using transabdominal and transvaginal transducers. Transvaginal imaging is performed due to inadequate visualization transabdominally. M-mode Doppler is also performed. FINDINGS: No gestational sac identified. Uterus measures 10 x 4.9 x 5.4 cm (longitudinal by AP by transverse) with a borderline thickened, homogeneous endometrium (1.6 centimeters). Trace fluid is present in the endometrial canal. No focal decidual reaction is identified. No cystic foci identified within the endometrium. ADNEXA: The right maternal ovary measures 3.6 x 1.2 x 1.2 cm. No right renal cysts or focal abnormalities. The left maternal ovary measures 4.8 x 2.4 x 4.0 cm. A 1.7 cm corpus luteum cyst is present at the left ovary. No suspicious adnexal lesions are identified. A small volume of free fluid is present in the pelvic cul-de-sac. US/US OB transvaginal IMPRESSION: No intrauterine gestational sac identified. There is trace fluid in the endometrial canal with a borderline thickened endometrium. In the setting of a positive test, these findings may correspond to a which is too early to detect sonographically or a missed spontaneous . Ectopic cannot be excluded on these images, though no ectopic is identified. Small volume of intraperitoneal free fluid. A 1.7 cm left corpus luteum cyst.
[2020-08-07 17:02] VITALS: BP 108/68; PULSE 89; RESP 18; TEMP 36.9; O2SAT 100; BMI 21.1
[2020-08-07 17:22] LABS: Glucose Urine UA NEG (NEG); Leukocyte Esterase Urine NEG (NEG); Nitrite Urine NEG (NEG); Specific Gravity - Urine >= 1.030 (1.005-1.025); Urine Blood 2+ (NEG); Urine Ketones >=80 MG/DL (NEG); Urine Protein NEG (NEG-TRACE)
[2020-08-07 17:24] LABS: Appearance Urine CLEAR; Color Urine YELLOW
[2020-08-07 17:32] LABS: UPreg QC Valid YES; Urine Pregnancy POSITIVE (NEGATIVE)
[2020-08-07 17:44] LABS: Bacteria Urine 1+ /LPF; Mucus Urine 1+ /LPF; RBC Urine 0-2 /HPF (0); Squamous Epithelial Cell Urine TRACE /LPF
[2020-08-07 17:51] LABS: MANUAL DIFF FLAG NO
[2020-08-07 17:53] LABS: Basophils Percent Auto 0.2 % (0-2); Eosinophils Percent Auto 0.1 % (0-4); Hematocrit 36.9 % (37-47); Hemoglobin 12.4 g/dl (12.0-16.0); Imm Gran Abs Auto 0.03 X10*3/uL (0.00-0.03); Imm Gran Pct Auto 0.3 % (0.0-0.4); Lymphocytes Absolute Auto 0.8 X10*3/uL (1.2-4.9); Lymphocytes Percent Auto 7.9 % (20-40); Mean Corpuscular HGB Conc 33.6 g/dl (31.0-35.0); Mean Corpuscular Hemoglobin 29.4 pg (27.0-33.0); Mean Corpuscular Volume 87.4 fL (80-98); Mean Platelet Volume 10.7 fL (9.4-12.3); Monocytes Percent Auto 10.2 % (2-11); Neutrophils Absolute Auto 7.7 X10*3/uL (2.0-8.3); Neutrophils Percent Auto 81.3 % (45-73); Platelet Count 178 X10*3/uL (160-400); Red Blood Count 4.22 X10*6/uL (4.20-5.50); Red Cell Distribution Width 12.8 % (11.0-16.0); White Blood Count 9.5 X10*3/uL (4.8-10.8)
[2020-08-07 18:14] LABS: Anion Gap 12 (12-20); Blood Urea Nitrogen 9 mg/dL (9-16); Calcium 8.5 mg/dL (8.4-10.2); Carbon Dioxide 23 mmol/L (22-29); Chloride 102 mmol/L (96-108); Creatinine Clr Calc Pharmacy 76.7; Estimated Glomerular Filt Rate > 60; Glucose Random 103 mg/dL (60-115); Potassium 3.5 mmol/L (3.3-5.1); Sodium 133 mmol/L (135-145)
[2020-08-07 19:47] VITALS: BP 121/80; PULSE 110; RESP 18; TEMP 37.4; O2SAT 100
--- NOTE | 2020-08-07 19:51 | ED_ITS ---
HPI - Female Genitourinary General Chief complaint: Urogenital-Female Stated complaint: kidney stone pain Time Seen by Provider: 08/07/20 20:04 Source: patient Mode of arrival: ambulatory Limitations: no limitations History of Present Illness HPI Narrative: 29-year-old female no significant past medical history is hortencia morales, was diagnosed with a kidney stone at this facility yesterday presents with right flank pain and right lower abdominal cramping. She states that the pain is 10/10, and feels worse than it did yesterday. She does not report any fevers, chills, chest pain or pressure, palpitations, abdominal distention, vaginal bleeding, abnormal vaginal discharge, edema, weakness, dizziness, or fatigue. MD elicited complaint: flank pain Onset (ago): day(s) Location of symptoms: RLQ and flank (Right) Severity: severe Severity scale (1-10): 10 Quality of pain: sharp, stabbing and aching Consistency: constant Vaginal discharge: none Vaginal bleeding: none Urinary symptoms: Flank Pain Exacerbating factors: movement Relieving factors: none Treatment prior to arrival: none Sexual activity: Yes Patient : Yes Related Data Previous Rx's Medication Instructions Recorded ciprofloxacin HCl 500 mg PO Q12H 5 Days #10 tab 08/04/20 ketorolac 10 mg PO TID PRN 5 Days #15 tab 08/04/20 tamsulosin [Flomax] 0.4 mg PO BEDTIME 4 Days #4 cap 08/04/20 amoxicillin-pot clavulanate 1 tab PO Q12H 5 Days #10 tab 08/06/20 [Augmentin] cephalexin 500 mg PO BID 7 Days #14 cap 08/06/20 hydrocodone-acetaminophen 1 tab PO Q6H PRN #12 tab 08/06/20 ondansetron 4 mg PO Q8H PRN #20 tab 08/06/20 prednisone 40 mg PO DAILY 4 Days #8 tab 08/06/20 pyridoxine (vitamin B6) 25 mg PO TID #30 tab 08/06/20 Allergies Allergy/AdvReac Type Severity Reaction Status Date / Time No Known Allergies Allergy Verified 08/05/20 21:19 Review of Systems Review of Systems: Constitutional: No Fever, No Chills ENT/Mouth: No sore throat Eyes: No Eye Pain, No Swelling, No Redness Cardiovascular: No Chest Pain, No SOB Respiratory: No Cough, No Sputum, No Wheezing Gastrointestinal: No Nausea, no e Vomiting, No Diarrhea, positive abdominal pain Genitourinary: Positive , positive known kidney stone, No Dysuria, no urinary frequency, no Hematuria, positive Flank Pain, no hesitancy Musculoskeletal: No joint pain, No Myalgias Skin: No Skin Lesions, No rash Neuro: No Weakness, No Numbness, No Headache Psych: Positive Anxiety, No Depression Heme/Lymph: No Bruising, No Lymphadenopathy Endocrine: No Polyuria, No Polydipsia Yes all other systems are reviewed and are negative [facility] Past Medical History Attestation statement: The following information was validated with the patient. Source: old records reviewed Medical History Kidney stones Social History Social History Alcohol intake: never Smoking Status: Never smoker Advance Directives: No Advance Directives Information Provided: Yes Physical Exam Vital Signs: Vital Signs: Last Vital Signs Temp 99.5 F 08/07/20 22:17 Pulse 114 H 08/07/20 22:17 Resp 18 08/07/20 22:17 BP 125/82 08/07/20 22:17 Pulse Ox 99 08/07/20 22:17 Body Mass Index 21.1 Appearance: Alert. Oriented X3. No acute distress. Eyes: Pupils equal, round and reactive to light. ENT: Pharynx normal. Neck: Normal inspection. Neck supple. CVS: Normal heart rate and rhythm. Pulses normal. Respiratory: No respiratory distress. Breath sounds normal. Abdomen: Soft and right lower quadrant abdominal pain and tenderness, positive CVA tenderness Skin: Skin warm and dry. Normal skin color. Normal skin turgor. Extremities: No lower extremity edema. Neuro: No motor deficit. No sensory deficit. Course Course Course Narrative: 29-year-old female presents with known kidney stone, presented to the emergency department yesterday for similar circumstances. Patient states that this pain is worse, migrated down to the right lower quadrant of the abdomen. As she is , we will rule out ectopic with pelvic ultrasound, repeat retroperitoneal ultrasound to rule out further kidney injury. We will provide pain management and a L of fluids. Urinalysis positive for heme, consistent with kidney stone, no significant changes to the retroperitoneal ultrasound, no viable gestational sac found in the uterus this could possibly be that she is less than 4 weeks . Patient was strongly advised to follow up with OBGYN. Referral made to DR Lee. Patient was advised to take medications that were prescribed to her yesterday. Patient did not take any of these medications before presentation to the emergency department. Patient verbalized understanding of and agrees to plan of care to discharge home. MDM - Female Genitourinary MDM Narrative Medical decision making narrative: Kidney stone, hydronephrosis, ectopic Differential Diagnosis Differential diagnosis: Likely urinary tract infection, ovarian cyst, ruptured ovarian cyst and cystitis Medical Records Attestation: I reviewed the patient's medical records. Lab Data Attestation: I reviewed the patient's lab results. Result diagrams: 08/07/20 17:45 08/07/20 17:45 Labs: Lab Results 08/07/20 08/07/20 08/07/20 Range/Units 17:12 17:12 17:45 WBC (4.8-10.8) X10*3/uL RBC (4.20-5.50) X10*6/uL Hgb (12.0-16.0) g/dl Hct (37-47) % MCV (80-98) fL MCH (27.0-33.0) pg MCHC (31.0-35.0) g/dl RDW (11.0-16.0) % Plt Count (160-400) X10*3/uL MPV (9.4-12.3) fL Immature Gran % (Auto) (0.0-0.4) % Neut % (Auto) (45-73) % Lymph % (Auto) (20-40) % [place] % (Auto) (2-11) % Eos % (Auto) (0-4) % Baso % (Auto) (0-2) % Lymph # (Auto) (1.2-4.9) X10*3/uL [place] # (Auto) (0.1-1.2) X10*3/uL Eos # (Auto) (0.0-0.4) X10*3/uL Baso # (Auto) (0.0-0.2) X10*3/uL Abs Immat Gran (auto) (0.00-0.03) X10*3/uL Absolute Neuts (auto) (2.0-8.3) X10*3/uL Absolute Nucleated RBC (0.0-0.012) X10*3/uL Nucleated RBC % (auto) (0.0-0.2) /100WBC Hold Blue Top SEE NOTE Sodium (135-145) mmol/L Potassium (3.3-5.1) mmol/L Chloride (96-108) mmol/L Carbon Dioxide (22-29) mmol/L Anion Gap (12-20) BUN (9-16) mg/dL Creatinine (0.5-1.4) mg/dL Estim Creat Clear Calc Estimated GFR Random Glucose (60-115) mg/dL Calcium (8.4-10.2) mg/dL Urine Color YELLOW Urine Appearance CLEAR Urine pH 6.0 (5.0-8.0) Ur Specific [place] >= 1.030 H (1.005-1.025) Urine Protein NEG (NEG-TRACE) MG/DL Urine Glucose (UA) NEG (NEG) MG/DL Urine Ketones >=80 (NEG) MG/DL Urine Blood 2+ H (NEG) Urine Nitrite NEG (NEG) Ur Leukocyte Esterase NEG (NEG) Urine RBC 0-2 (0) /HPF Urine WBC 1-4 (0-4) /HPF Ur Squamous Epith Cells TRACE /LPF Urine Bacteria 1+ /LPF Urine Mucus 1+ /LPF Urine Test POSITIVE H (NEGATIVE) 08/07/20 08/07/20 Range/Units 17:45 17:45 WBC 9.5 (4.8-10.8) X10*3/uL RBC 4.22 (4.20-5.50) X10*6/uL Hgb 12.4 (12.0-16.0) g/dl Hct 36.9 L (37-47) % MCV 87.4 (80-98) fL MCH 29.4 (27.0-33.0) pg MCHC 33.6 (31.0-35.0) g/dl RDW 12.8 (11.0-16.0) % Plt Count 178 (160-400) X10*3/uL MPV 10.7 (9.4-12.3) fL Immature Gran % (Auto) 0.3 (0.0-0.4) % Neut % (Auto) 81.3 H (45-73) % Lymph % (Auto) 7.9 L (20-40) % [place] % (Auto) 10.2 (2-11) % Eos % (Auto) 0.1 (0-4) % Baso % (Auto) 0.2 (0-2) % Lymph # (Auto) 0.8 L (1.2-4.9) X10*3/uL [place] # (Auto) 1.0 (0.1-1.2) X10*3/uL Eos # (Auto) 0.0 (0.0-0.4) X10*3/uL Baso # (Auto) 0.0 (0.0-0.2) X10*3/uL Abs Immat Gran (auto) 0.03 (0.00-0.03) X10*3/uL Absolute Neuts (auto) 7.7 (2.0-8.3) X10*3/uL Absolute Nucleated RBC 0.000 (0.0-0.012) X10*3/uL Nucleated RBC % (auto) 0.0 (0.0-0.2) /100WBC Hold Blue Top Sodium 133 L (135-145) mmol/L Potassium 3.5 (3.3-5.1) mmol/L Chloride 102 (96-108) mmol/L Carbon Dioxide 23 (22-29) mmol/L Anion Gap 12 (12-20) BUN 9 (9-16) mg/dL Creatinine 0.77 (0.5-1.4) mg/dL Estim Creat Clear Calc 76.7 Estimated GFR > 60 Random Glucose 103 (60-115) mg/dL Calcium 8.5 (8.4-10.2) mg/dL Urine Color Urine Appearance Urine pH (5.0-8.0) Ur Specific [place] (1.005-1.025) Urine Protein (NEG-TRACE) MG/DL Urine Glucose (UA) (NEG) MG/DL Urine Ketones (NEG) MG/DL Urine Blood (NEG) Urine Nitrite (NEG) Ur Leukocyte Esterase (NEG) Urine RBC (0) /HPF Urine WBC (0-4) /HPF Ur Squamous Epith Cells /LPF Urine Bacteria /LPF Urine Mucus /LPF Urine Test (NEGATIVE) Imaging Data Retroperitoneal and transvaginal OB ultrasound: Attestation: I personally reviewed and interpreted this imaging study as follows: Radiologist's impression: EXAMINATION: US RETROPERITONEAL LIMITED (RENAL ONLY) CLINICAL INFORMATION: Right flank pain.. COMPARISON: 08/06/[address] dated 08/04/2020 TECHNIQUE: Real-time imaging of the kidneys. FINDINGS: RIGHT KIDNEY: 11.4 x 5 x 5.2 cm (SAG x AP x TRV). The kidney is normal in size, contour, and echogenicity. Renal cortical thickness is normal. A 3 mm echogenic calculus is present within a calyx in the right lower renal pole. Right-sided hydronephrosis is again noted, unchanged from prior. No focal parenchymal lesions. LEFT KIDNEY: 11.1 x 5.5 x 5.6 cm (SAG x AP x TRV). The kidney is normal in size, contour, and echogenicity. Renal cortical thickness is normal. A 7 mm simple cyst is again seen in the interpolar region. No calculi or suspicious focal parenchymal lesions. No hydronephrosis. US/US renal BI IMPRESSION: 1. Unchanged right sided hydronephrosis. 2. A single 3 mm nonobstructing calculus in the right kidney. 3. A simple 7 mm cyst in the left kidney. No follow-up is necessary. EXAMINATION: US OBSTETRICAL ULTRASOUND CLINICAL INFORMATION: Right flank pain. COMPARISON: None. LMP: 07/10/2020. Gestational age by maternal dates is 4 weeks 0 days. Estimated date of delivery by maternal dates is 04/16/2021. TECHNIQUE: Ultrasound of the maternal pelvis is performed using transabdominal and transvaginal transducers. Transvaginal imaging is performed due to inadequate visualization transabdominally. M-mode Doppler is also performed. FINDINGS: No gestational sac identified. Uterus measures 10 x 4.9 x 5.4 cm (longitudinal by AP by transverse) with a borderline thickened, homogeneous endometrium (1.6 centimeters). Trace fluid is present in the endometrial canal. No focal decidual reaction is identified. No cystic foci identified within the endometrium. ADNEXA: The right maternal ovary measures 3.6 x 1.2 x 1.2 cm. No right renal cysts or focal abnormalities. The left maternal ovary measures 4.8 x 2.4 x 4.0 cm. A 1.7 cm corpus luteum cyst is present at the left ovary. No suspicious adnexal lesions are identified. A small volume of free fluid is present in the pelvic cul-de-sac. US/US OB <= 14 weeks fetus IMPRESSION: No intrauterine gestational sac identified. There is trace fluid in the endometrial canal with a borderline thickened endometrium. In the setting of a positive test, these findings may correspond to a which is too early to detect sonographically or a missed spontaneous . Ectopic cannot be excluded on these images, though no ectopic is identified. Small volume of intraperitoneal free fluid. A 1.7 cm left corpus luteum cyst. Discharge Plan Discharge Clinical Impression: Kidney stone Qualifiers: Weeks of gestation: less than 8 weeks Qualified Code(s): Z3A.01 - Less than 8 weeks gestation of Patient Disposition: Home, Self-Care Instructions: Threatened Miscarriage (ED), Kidney Stones (ED), Flank Pain (ED), First Trimester (ED) Additional Instructions: You were evaluated for right flank pain and . Pelvic ultrasound does not show a intrauterine sac however this could be because your very early in or you could have miscarried. You must follow-up with OBGYN for further follow-up. This is very important. Please call Dr Lee and requested appointment. Renal ultrasound shows a 3 mm nonobstructing kidney stone and a very small 7 mm cyst to the left kidney. Please continue to take medications that were prescribed to you yesterday by Dr. Zafar. Thank you for choosing this emergency department for evaluation. Please follow-up with primary care physician as needed. Return to the emergency department for any new, concerning, or worsening symptoms. Prescriptions: No Action ketorolac 10 mg tablet 10 mg PO TID PRN (Reason: pain) 5 Days Qty: 15 RF: 0 tamsulosin [Flomax] 0.4 mg capsule 0.4 mg PO BEDTIME 4 Days Qty: 4 RF: 0 ciprofloxacin HCl 500 mg tablet 500 mg PO Q12H 5 Days Qty: 10 RF: 0 amoxicillin-pot clavulanate [Augmentin] 875-125 mg tablet 1 tab PO Q12H 5 Days Qty: 10 RF: 0 pyridoxine (vitamin B6) 25 mg tablet 25 mg PO TID Qty: 30 RF: 0 prednisone 20 mg tablet 40 mg PO DAILY 4 Days Qty: 8 RF: 0 cephalexin 500 mg capsule 500 mg PO BID 7 Days Qty: 14 RF: 0 ondansetron 4 mg tablet,disintegrating 4 mg PO Q8H PRN (Reason: nausea and vomiting) Qty: 20 RF: 0 hydrocodone-acetaminophen 5-325 mg tablet 1 tab PO Q6H PRN (Reason: pain) Qty: 12 RF: 0 Interventions: ED Discharge Assessment Last Done: 08/08/20 01:32 Discharge Date/Time: 08/08/20 00:10
[2020-08-07] MEDS: 0.9 % Sodium Chloride 1,000 ML 999 ML IVCONT (20:05)
[2020-08-07 22:17] VITALS: BP 125/82; PULSE 114; RESP 18; TEMP 37.5; O2SAT 99
[2020-08-07] MEDS: Morphine Sulfate 4 MG/ML CARTRIDGE IVPUSH (22:35)
[2020-08-07] MEDS: Metoclopramide HCl 10 MG/2 ML VIAL IVPUSH (22:36)
[2020-08-07] MEDS: diphenhydrAMINE HCL 50 MG/ML VIAL 12.5 MG IVPUSH (22:36)
== END 2020-08-08 00:10 | disposition home or self-care (01) ==
PROVIDERS: Emergency Provider Emergency Medicine; PCP Family Medicine
DX: O26.831 Pregnancy related renal disease, first trimester (principal); N13.2 Hydronephrosis with renal and ureteral calculous obstruction; O34.81 Maternal care for other abnormalities of pelvic organs, first trimester; N83.12 Corpus luteum cyst of left ovary; Z3A.01 Less than 8 weeks gestation of pregnancy
CPT/HCPCS: 36415; 76775; 76801; 76817; 80048; 81001; 81025; 85025; 96361; 96374; 96375; 99283; 99284; J1200; J2270; J2765

== ENCOUNTER 2020-08-15 | Outpatient (REF) | payer MEDICAID, SELFPAY ==
[2020-08-15 17:12] LABS: HCG Quantitative 1032 mIU/mL
== END 2020-08-15 00:01 | disposition home or self-care (01) ==
LOC: HO.LAB
PROVIDERS: Visit Provider Advanced Practice Midwife
DX: Z32.01 Encounter for pregnancy test, result positive (principal); Z3A.00 Weeks of gestation of pregnancy not specified
CPT/HCPCS: 36415; 84702

== ENCOUNTER → 2020-08-15 14:03 | Outpatient (BNVA) | payer MEDICAID, SELFPAY | PROVIDERS: PCP Family Medicine; Visit Provider Advanced Practice Midwife | DX: Z32.01 Encounter for pregnancy test, result positive (principal); N20.0 Calculus of kidney | CPT/HCPCS: 36415; 99202 ==

== ENCOUNTER 2020-08-21 13:15 | Outpatient (REF) | payer MEDICAID, SELFPAY ==
--- NOTE | ~2020-08-21 | US_ITS ---
EXAMINATION: US OBSTETRICAL ULTRASOUND CLINICAL INFORMATION: Followup . Viability. COMPARISON: None. LMP: 07/10/2020. Gestational age by maternal dates is 6 weeks and 0 days. Estimated date of delivery by maternal dates is 04/16/2021. TECHNIQUE: Transabdominal ultrasound pelvis is performed. FINDINGS: There is a single intrauterine gestational sac with visible yolk sac. pole or heartbeat is not seen. There is no motion either. Mean gestational sac diameter is 0.64 cm. Length corresponds to 5 weeks and 2 days. The right ovary measures 2.4 x 1.1 x 2.5 cm and appears unremarkable. The left ovary measures 3.7 x 2.2 x 3.1 cm. There is a simple cyst measuring 2.4 x 1.7 x 1.4 cm and a corpus luteal cyst measuring 1.7 x 1.4 x 1.3 cm. US/US OB <= 14 weeks fetus IMPRESSION: Intrauterine gestational sac with an MSD diameter of 0.64 cm. pole, motion and heart beat is not seen. Intrauterine gestational sac is seen with mean sac diameter corresponding to 5 weeks and 2 days. Recommend repeat ultrasound in 2-4 weeks.
--- NOTE | ~2020-08-21 | US_ITS ---
EXAMINATION: US OBSTETRICAL ULTRASOUND CLINICAL INFORMATION: Followup . Viability. COMPARISON: None. LMP: 07/10/2020. Gestational age by maternal dates is 6 weeks and 0 days. Estimated date of delivery by maternal dates is 04/16/2021. TECHNIQUE: Transabdominal ultrasound pelvis is performed. FINDINGS: There is a single intrauterine gestational sac with visible yolk sac. pole or heartbeat is not seen. There is no motion either. Mean gestational sac diameter is 0.64 cm. Length corresponds to 5 weeks and 2 days. The right ovary measures 2.4 x 1.1 x 2.5 cm and appears unremarkable. The left ovary measures 3.7 x 2.2 x 3.1 cm. There is a simple cyst measuring 2.4 x 1.7 x 1.4 cm and a corpus luteal cyst measuring 1.7 x 1.4 x 1.3 cm. US/US OB transvaginal IMPRESSION: Intrauterine gestational sac with an MSD diameter of 0.64 cm. pole, motion and heart beat is not seen. Intrauterine gestational sac is seen with mean sac diameter corresponding to 5 weeks and 2 days. Recommend repeat ultrasound in 2-4 weeks.
== END 2020-08-21 13:16 | disposition home or self-care (01) ==
LOC: HO.US 13:15
PROVIDERS: Visit Provider Advanced Practice Midwife
DX: Z36.87 Encounter for antenatal screening for uncertain dates (principal)
CPT/HCPCS: 76801; 76817

== ENCOUNTER 2020-09-10 10:15 | Outpatient (REF) | payer MEDICAID, SELFPAY ==
--- NOTE | ~2020-09-10 | US_ITS ---
EXAMINATION: US OBSTETRICAL ULTRASOUND CLINICAL INFORMATION: Confirm viability. Check size and dates. COMPARISON: Previous exam August 21, 2020 LMP: 07/10/2020. Gestational age by maternal dates is 8 weeks 6 days. Estimated date of delivery by maternal dates is 04/16/2021. TECHNIQUE: Transabdominal and transvaginal first trimester OB ultrasound FINDINGS: There is a single intrauterine gestational sac with visible yolk sac, and embryo/fetus. No cardiac activity. There is no significant subchorionic hemorrhage or hematoma. CRL (crown rump length): 0.6 cm (6 weeks 3 days +/- 4 days). RAMÍREZ (estimated date of delivery): 05/03/2021 +/- 4 days. MATERNAL ADNEXA: The right maternal ovary measures 2.8 x 1.2 x 1 cm. The left maternal ovary measures 3.7 x 1.9 x 3.5 cm. There are 2 left ovarian cysts measuring 1.5 x 1.1 x 2 cm and 1.7 x 1.5 x 2.3 cm. There is no significant maternal adnexal mass. No maternal pelvic ascites. US/US OB <= 14 weeks fetus IMPRESSION: Single intrauterine gestation with ultrasound gestational age of 6 weeks 3 days +/- 4 days. Estimated date of delivery is 05/03/2021 +/- 4 days. This is behind date from LMP. No heart activity is seen. No maternal adnexal mass or pelvic ascites.
--- NOTE | ~2020-09-10 | US_ITS ---
EXAMINATION: US OBSTETRICAL ULTRASOUND CLINICAL INFORMATION: Confirm viability. Check size and dates. COMPARISON: Previous exam August 21, 2020 LMP: 07/10/2020. Gestational age by maternal dates is 8 weeks 6 days. Estimated date of delivery by maternal dates is 04/16/2021. TECHNIQUE: Transabdominal and transvaginal first trimester OB ultrasound FINDINGS: There is a single intrauterine gestational sac with visible yolk sac, and embryo/fetus. No cardiac activity. There is no significant subchorionic hemorrhage or hematoma. CRL (crown rump length): 0.6 cm (6 weeks 3 days +/- 4 days). RAMÍREZ (estimated date of delivery): 05/03/2021 +/- 4 days. MATERNAL ADNEXA: The right maternal ovary measures 2.8 x 1.2 x 1 cm. The left maternal ovary measures 3.7 x 1.9 x 3.5 cm. There are 2 left ovarian cysts measuring 1.5 x 1.1 x 2 cm and 1.7 x 1.5 x 2.3 cm. There is no significant maternal adnexal mass. No maternal pelvic ascites. US/US OB transvaginal IMPRESSION: Single intrauterine gestation with ultrasound gestational age of 6 weeks 3 days +/- 4 days. Estimated date of delivery is 05/03/2021 +/- 4 days. This is behind date from LMP. No heart activity is seen. No maternal adnexal mass or pelvic ascites.
== END 2020-09-10 10:16 | disposition home or self-care (01) ==
LOC: HO.US 10:15
PROVIDERS: Visit Provider Advanced Practice Midwife
DX: O02.1 Missed abortion (principal); Z3A.08 8 weeks gestation of pregnancy
CPT/HCPCS: 76801; 76817; 99212

== ENCOUNTER → 2020-09-12 14:16 | Outpatient (BNVA) | payer MEDICAID, SELFPAY | PROVIDERS: PCP Family Medicine; Visit Provider Obstetrics & Gynecology | DX: O02.1 Missed abortion (principal) | CPT/HCPCS: 99212 ==

== ENCOUNTER → 2020-09-20 14:15 | Outpatient (BNVA) | payer MEDICAID, SELFPAY | PROVIDERS: PCP Family Medicine; Visit Provider Obstetrics & Gynecology | DX: O02.1 Missed abortion (principal) | CPT/HCPCS: 99212 ==

== ENCOUNTER → 2020-09-25 12:01 | Outpatient (BNVA) | payer MEDICAID, SELFPAY | PROVIDERS: PCP Family Medicine; Visit Provider Obstetrics & Gynecology ==

== ENCOUNTER 2020-10-17 13:44 | Outpatient (REF) | payer MEDICAID, SELFPAY ==
--- NOTE | ~2020-10-17 | US_ITS ---
EXAMINATION: OB ULTRASOUND CLINICAL INFORMATION: Missed COMPARISON: Previous exams most recent 09/10/2020 TECHNIQUE: Transabdominal and transvaginal first trimester OB ultrasound was performed. Transvaginal exam was performed for better visualization of the uterus and ovaries. FINDINGS: The uterus is anteverted and measures 8.7 x 4.1 x 7.3 cm in dimension. No focal uterine lesion is seen. The endometrium is homogeneous-appearing and measures 0.8 cm in thickness. No increased vascularity to suggest retained products of conception is seen. There is a small nabothian cyst in the cervix. The right ovary measures 3.7 x 1.9 x 3.2 cm and the left ovary measures 3.2 x 1.6 x 3 cm. There is a 1.7 x 0.9 x 1.5 cm irregularly-shaped slightly complex left ovarian cyst with a cyst within a cyst. There is a small amount of fluid in the pelvis. US/US OB pelvic and transvaginal IMPRESSION: Normal thickness endometrium measuring 8 mm. This does not appear hypervascular to suggest retained products of conception.
== END 2020-10-17 13:45 | disposition home or self-care (01) ==
LOC: HO.US 13:44
PROVIDERS: Visit Provider Obstetrics & Gynecology
DX: O02.1 Missed abortion (principal)
CPT/HCPCS: 76801; 76817

== ENCOUNTER → 2020-10-22 11:36 | Outpatient (BNVA) | payer MEDICAID, SELFPAY | PROVIDERS: PCP Family Medicine; Visit Provider Obstetrics & Gynecology ==